=== PATIENT | female | born 1980 | race Caucasian/White ===

== ENCOUNTER 2019-11-27 15:04 | Outpatient (CLI) | payer SELFPAY ==
--- NOTE | 2019-11-27 15:12 | XR_ITS ---
WS: [id number] FOOT RIGHT TECHNIQUE: 3 views of the right foot CLINICAL INFORMATION: right foot sprain COMPARISON: None. FINDINGS: No evidence of acute fracture or dislocation. Normal tarsal metatarsal alignment. Normal calcaneus. N ormal visualized talar dome. Mild soft tissue edema. Plantar calcaneal spurring. Prior hardware remov al distal tibia XR/XR foot RT min 3V* [id number] IMPRESSION: Mild soft tissue edema. No acute fractures.
== END 2019-11-27 15:05 | disposition home or self-care (01) ==
LOC: RADWPI 15:10
PROVIDERS: Family Provider Family Medicine; PCP Family Medicine; Visit Provider Nurse Practitioner Family
DX: S93.601A Unspecified sprain of right foot, initial encounter (principal); X58.XXXA Exposure to other specified factors, initial encounter; M79.9 Soft tissue disorder, unspecified
CPT/HCPCS: 73630

== ENCOUNTER → 2019-12-30 14:55 | Outpatient (BNVA) | payer OTHER, SELFPAY | PROVIDERS: Family Provider Family Medicine; PCP Family Medicine; Visit Provider Obstetrics & Gynecology | DX: N64.52 Nipple discharge (principal); R23.2 Flushing; N94.10 Unspecified dyspareunia; R87.810 Cervical high risk human papillomavirus (HPV) DNA test positive; N94.6 Dysmenorrhea, unspecified; N94.5 Secondary dysmenorrhea | CPT/HCPCS: 83001; 84146 ==